=== PATIENT | female | born 1990 | race Caucasian/White ===

== ENCOUNTER 2021-05-16 14:17 | Emergency (ER) | payer OTHER ==
[2021-05-16 14:49] VITALS: BP 107/72; PULSE 80; TEMP 98.2; BMI 30.3
[2021-05-16] MEDS ORDERED: ACETAMINOPHEN 500 MG TABLET (FP) PO ONE (15:08)
[2021-05-16] MEDS ORDERED: ACETAMINOPHEN 500 MG TABLET (FP) ONE (15:21)
[2021-05-16 15:30] LABS: BASO % 0.8 % (0-2.0); EOS % 6.4 % (0-4.5); HEMATOCRIT 34.5 % (32.4-45.2); HEMOGLOBIN 11.9 GM/dL (10.7-15.3); MCHC 34.6 g/dl (32.0-36.0); MEAN PLT VOLUME 7.9 fl (7.5-11.1); MONO % 10.4 % (3.8-10.2); NEUT % 68.4 % (42.8-82.8); PLATELET COUNT 258 10^3/uL (134-434); RBC 4.26 M/mm3 (3.60-5.2); RDW 14.5 % (11.6-15.6); WHITE BLOOD COUNT 7.1 K/mm3 (4.0-10.0)
[2021-05-16 15:41] LABS: EPI CELLS 15 /uL (0-25.1); HYALINE CASTS 0 /uL (0-3.1); PH,URINE 7.5 (5.0-8.0); URINE APPEARANCE CLEAR; URINE BACTERIA 231 /uL (0-1359); URINE BILIRUBIN NEGATIVE (NEGATIVE); URINE COLOR YELLOW; URINE GLUCOSE (UA) NEGATIVE (NEGATIVE); URINE KETONE NEGATIVE (NEGATIVE); URINE LEUK ESTERASE 2+ (NEGATIVE); URINE NITRITE NEGATIVE (NEGATIVE); URINE PROTEIN NEGATIVE (NEGATIVE); URINE RBC 50 /uL (0-23.9); URINE UROBILINOGEN 0.2 mg/dL (0.2-1.0); URINE WBC 30 /uL (0-25.8)
[2021-05-16 15:42] LABS: HCG,QUALITATIVE URINE Positive
[2021-05-16 15:50] LABS: CALCIUM 9.7 mg/dL (8.5-10.1)
[2021-05-16 15:51] LABS: BLOOD UREA NITROGEN 11.1 mg/dL (7-18)
[2021-05-16 15:54] LABS: CREATININE 0.7 mg/dL (0.55-1.3)
== END 2021-05-16 16:58 | disposition home or self-care (01) ==
LOC: JER 14:17
DX: O23.41 Unspecified infection of urinary tract in pregnancy, first trimester (principal); O26.891 Other specified pregnancy related conditions, first trimester; R10.9 Unspecified abdominal pain
CPT/HCPCS: 36415; 76817-TC; 80048; 81003; 84702; 84703; 85025; 87086; 87491; 87591; 99284-25

== ENCOUNTER 2021-05-18 13:13 | Emergency (ER) | payer OTHER ==
[2021-05-18 13:27] VITALS: BP 107/72; PULSE 62; TEMP 98; BMI 30.3
== END 2021-05-18 15:46 | disposition home or self-care (01) ==
LOC: JERFT 13:13 → JER 13:13 → JERFT 15:46
DX: Z32.01 Encounter for pregnancy test, result positive (principal); Z3A.01 Less than 8 weeks gestation of pregnancy
CPT/HCPCS: 36415; 76817-TC; 84702; 99284-25